=== PATIENT | male | born 1950 | race Hispanic/Latino ===

== ENCOUNTER → 2021-10-11 | Outpatient (CLI) | payer MEDICARE | LOC: CT 15:59 | PROVIDERS: ATTEND Specialist | DX: M54.2 Cervicalgia (principal); M25.512 Pain in left shoulder | CPT/HCPCS: 72125 ==

== ENCOUNTER → 2022-01-23 | Outpatient (CLI) | payer MEDICARE ==
[~2022-01-23] MED LIST: GADOBENATE DIMEGLUMINE 1 ML IV ONE
[2022-01-23 08:50] LABS: CREATININE, SERUM 0.92 mg/dL (0.72-1.25)
== END ==
LOC: MRI 08:00
PROVIDERS: ATTEND Specialist
DX: D32.0 Benign neoplasm of cerebral meninges (principal)
CPT/HCPCS: 36415; 70553; 82565; 84520; A9577

== ENCOUNTER → 2023-04-10 | Outpatient (REF) | payer MEDICARE | LOC: MRI 08:34 | PROVIDERS: ATTEND Specialist | DX: R29.2 Abnormal reflex (principal); R26.1 Paralytic gait | CPT/HCPCS: 72141; 72148 ==

== ENCOUNTER → 2025-03-03 | Outpatient (REF) | payer MEDICARE | LOC: MRI 12:43 | PROVIDERS: ATTEND Specialist | DX: D32.0 Benign neoplasm of cerebral meninges (principal) | CPT/HCPCS: 70553; A9577 ==